=== PATIENT | male | born 1970 | race African-American/Black ===

== ENCOUNTER 2017-05-04 23:45 | Emergency (ER) | payer OTHER ==
[~2017-05-04] VITALS: Ht 182.9 cm; Wt 68.0 kg
--- NOTE | ~2017-05-04 | EKG ---
[address] [place] [address] ELECTROCARDIOGRAM REPORT Name: JUDI PICKETT Room #: DEP Loc#: [id number] Admission: 05/04/17 Attend Phys: Discharge: 05/05/17 Date of : 70 Report #: [id number] THIS REPORT FOR: //name// [facility] ED Test Date: 2017-05-05 Test Time: 00:22:09 Pat Name: JUDI PICKETT Department: Room: Gender: Business Systems Technician: JOANN : 1970 Requested By: Harrison Delatorre Order Number: [id number] MD: Michele Astorga Measurements Intervals [place] Rate: 69 P: 17 NE: 162 QRS: 58 QRSD: 89 T: 56 QT: 369 QTc: 396 Interpretive Statements Sinus rhythm Early repolarization Compared to ECG 01/02/2015 18:27:09 No significant change was found Electronically Signed On 05-05-2017 8:02:38 LODGE SALES ASSOCIATE by Michele Astorga [email or web address] <ELECTRONICALLY SIGNED> By: Michele Astorga MD, [facility] 05/05/17 0802 0022 0022 Michele Astorga MD, FACC /EPI
[~2017-05-04 23:45] MED LIST: KEFLEX500 MG PO; METFORMIN HCL500 MG PO; NAPROSYN500 MG PO; NOHOMEMEDICATIONS; NORCO 5-325 TA1 EACH PO
[2017-05-05 00:29] LABS: BASOPHILS 1.3 % (0.0-2.0); EOSINOPHILS 3.1 % (0.0-3.0); HEMATOCRIT 38.2 % (42.0-52.0); HEMOGLOBIN 12.5 gm/dL (14.0-18.0); LYMPHOCYTES 44.1 % (24.0-44.0); MCH 28.1 pg (26.0-34.0); MCHC 32.8 g/dL (28.0-37.0); MCV 85.7 fL (80.0-100.0); PLATELET COUNT 267 thou/uL (150-400); POLYS 42.5 % (36.0-66.0); RBC 4.46 mil/uL (4.50-6.00); RDW 13.4 % (10.5-14.5)
[2017-05-05 00:36] LABS: ANION GAP 6 mmol/L (7-16); BUN 16 mg/dL (7-18); CHLORIDE 107 mmol/L (98-107); CO2 28 mmol/L (21-32); CREATININE 1.1 mg/dL (0.7-1.3); GLUCOSE 146 mg/dL (74-106); POTASSIUM 4.2 mmol/L (3.5-5.1); SODIUM 141 mmol/L (136-145)
[2017-05-05 00:45] LABS: TROPONIN-I < 0.04 ng/mL (<0.06)
[2017-05-05] MEDS ORDERED: METFORMIN HCL500 MG PO (02:03)
== END 2017-05-05 02:35 | disposition home or self-care (01) ==
LOC: ER 23:45
PROVIDERS: Emergency Medicine
DX: E11.9 Type 2 diabetes mellitus without complications (principal); R51 Headache

== ENCOUNTER 2018-04-25 09:45 | Emergency (ER) | payer OTHER ==
[~2018-04-25] VITALS: Ht 182.9 cm; Wt 68.0 kg
[2018-04-25 10:05] LABS: ABSOLUTE NEUTROPHILS 3.3 thou/uL (1.4-8.2); BASOPHILS 1.4 % (0.0-2.0); EOSINOPHILS 2.9 % (0.0-3.0); HEMATOCRIT 41.5 % (42.0-52.0); HEMOGLOBIN 13.7 gm/dL (14.0-18.0); LYMPHOCYTES 28.5 % (24.0-44.0); MCH 28.4 pg (26.0-34.0); MCHC 33.1 g/dL (28.0-37.0); MCV 85.8 fL (80.0-100.0); MONOCYTES 9.1 % (1.0-8.0); PLATELET COUNT 290 thou/uL (150-400); POLYS 58.1 % (36.0-66.0); RBC 4.83 mil/uL (4.50-6.00); WBC 5.6 thou/uL (4.0-11.0)
[2018-04-25 10:16] LABS: ANION GAP 10 mmol/L (7-16); BUN 16 mg/dL (7-18); CALCIUM 9.6 mg/dL (8.5-10.1); CHLORIDE 103 mmol/L (98-107); CO2 28 mmol/L (21-32); GLUCOSE 177 mg/dL (74-106); POTASSIUM 3.9 mmol/L (3.5-5.1); SODIUM 141 mmol/L (136-145)
[2018-04-25 10:25] LABS: TROPONIN-I <0.06 ng/mL (<0.06)
[2018-04-25 12:14] VITALS: BP 93/59
--- NOTE | 2018-04-25 12:52 | EKG ---
[place] [address] [facility] [place] [address] ELECTROCARDIOGRAM REPORT Name: JUDI PICKETT Room #: DEP Loc#: [id number] ������������������ Admission: 04/25/18 ������������������ Attend Phys: Discharge: 04/25/18 ������������������ Date of : 70 Report #: [id number] ����������������������������������������������������������������� [id number] THIS REPORT FOR: //name// [facility] ED Test Date: 2018-04-25 Test Time: 09:54:02 Pat Name: JUDI PICKETT Department: Room: Gender: M Deployment Specialist: HAOBoaz : 1970 Requested By: Harrison Delatorre Order Number: [id number] MD: Anam Hernández Measurements Intervals [place] Rate: 59 P: 32 [place]: 149 QRS: 50 QRSD: 81 T: 42 QT: 376 QTc: 373 Interpretive Statements Sinus rhythm Left ventricular hypertrophy Nonspecific ST/T wave changes Compared to ECG 05/05/2017 00:22:09 Early repolarization no longer present Electronically Signed On 04-25-2018 12:52:06 SENIOR CONTROLS TECHNICIAN by Anam Hernández [email or web address] ��������������������������������������������� <ELECTRONICALLY SIGNED> ���������������������������������������� By: Anam Hernández MD ��������������������������������������������� 04/25/18 1252 0954 3 Anam Hernández MD /FELIX
== END 2018-04-25 12:48 | disposition home or self-care (01) ==
LOC: ER 09:45
PROVIDERS: Emergency Medicine
DX: R00.2 Palpitations (principal); E11.9 Type 2 diabetes mellitus without complications

== ENCOUNTER 2019-04-23 02:00 | Emergency (ER) | payer OTHER ==
[~2019-04-23] VITALS: Ht 177.8 cm; Wt 59.0 kg
[2019-04-23 02:55] LABS: HEMATOCRIT 41.3 % (42.0-52.0); HEMOGLOBIN 13.1 gm/dL (14.0-18.0); MCH 27.4 pg (26.0-34.0); MCHC 31.7 g/dL (28.0-37.0); MCV 86.5 fL (80.0-100.0); PLATELET COUNT 312 thou/uL (150-400); RBC 4.77 mil/uL (4.50-6.00); RDW 13.5 % (10.5-14.5); WBC 5.6 thou/uL (4.0-11.0)
[2019-04-23 02:57] LABS: ANION GAP 8 mmol/L (7-16); BUN 13 mg/dL (7-18); CALCIUM 9.1 mg/dL (8.5-10.1); CHLORIDE 100 mmol/L (98-107); CO2 28 mmol/L (21-32); CREATININE 0.9 mg/dL (0.7-1.3); GLUCOSE 197 mg/dL (74-106); POTASSIUM 4.3 mmol/L (3.5-5.1); SODIUM 136 mmol/L (136-145)
[2019-04-23 03:06] LABS: TROPONIN-I <0.06 ng/mL (<0.06)
[2019-04-23 03:25] LABS: ABSOLUTE NEUTROPHILS 2.2 thou/uL (1.4-8.2); ATYPICAL LYMPHS 1 %; LARGE PLATELETS OCCASIONAL
[2019-04-23] MEDS ORDERED: GLUCOPHAGE500 MG PO (05:13)
[2019-04-23 05:17] VITALS: BP 98/62
--- NOTE | 2019-04-23 08:54 | EKG ---
[facility] [place] [address] ELECTROCARDIOGRAM REPORT Name: JUDI PICKETT Room #: DEP [facility]#: [id number] Admission: 04/23/19 Attend Phys: Discharge: 04/23/19 Date of : 70 Report #: [id number] THIS REPORT FOR: cc: [facility] - Clinic physician unknown [facility] - Clinic physician unknown Deandre Gary MD ~ THIS REPORT FOR: //name// [facility] ED Test Date: 2019-04-23 Test Time: 02:10:02 Pat Name: JUDI PICKETT Department: Room: Gender: Pathology Collector: [facility] : 1970 Requested By: Marcela Morgan Order Number: [id number] MD: Deandre Gary Measurements Intervals [place] Rate: 60 P: 23 MS: 145 QRS: 54 QRSD: 84 T: 57 QT: 371 QTc: 371 Interpretive Statements Sinus rhythm Compared to ECG 04/25/2018 09:54:02 Electronically Signed On 04-23-2019 8:53:28 MACHINE WIPER by Deandre Gary [email or web address] <ELECTRONICALLY SIGNED> By: Deandre Gary MD 04/23/19 0853 9 9 Deandre Gary MD /FELIX
== END 2019-04-23 05:18 | disposition home or self-care (01) ==
LOC: ER 02:00
PROVIDERS: Emergency Medicine
DX: R07.9 Chest pain, unspecified (principal); E11.9 Type 2 diabetes mellitus without complications; M54.9 Dorsalgia, unspecified; G89.29 Other chronic pain; F41.9 Anxiety disorder, unspecified

== ENCOUNTER 2020-02-28 10:25 | Emergency (ER) | payer OTHER ==
[~2020-02-28] VITALS: Ht 177.8 cm; Wt 63.5 kg
[~2020-02-28 10:25] MED LIST changes: +GLUCOPHAGE500 MG PO
[2020-02-28 11:30] VITALS: BP 120/77
[2020-02-28] MEDS ORDERED: MOBIC7.5 MG PO (11:40)
[2020-02-28] MEDS ORDERED: AMOXICILLIN500 M1 PO (11:40)
== END 2020-02-28 12:10 | disposition home or self-care (01) ==
LOC: ER 10:25
DX: K04.7 Periapical abscess without sinus (principal); E11.9 Type 2 diabetes mellitus without complications; G89.29 Other chronic pain

== ENCOUNTER 2020-05-16 21:15 | Emergency (ER) | payer OTHER ==
[~2020-05-16] VITALS: Ht 172.7 cm; Wt 63.5 kg
[~2020-05-16 21:15] MED LIST changes: +AMOXICILLIN500 M1 PO; +MOBIC7.5 MG PO
[2020-05-16] MEDS ORDERED: NORCO 10-325 T1 EACH PO (22:30)
[2020-05-16 22:37] VITALS: BP 130/68
== END 2020-05-16 22:43 | disposition still patient (30) ==
LOC: ER 21:15
DX: S20.212A Contusion of left front wall of thorax, initial encounter (principal); E11.9 Type 2 diabetes mellitus without complications; Z79.899 Other long term (current) drug therapy; Y04.2XXA Assault by strike against or bumped into by another person, initial encounter; Y93.89 Activity, other specified; Y92.89 Other specified places as the place of occurrence of the external cause; Y99.8 Other external cause status

== ENCOUNTER 2020-10-11 01:23 | Emergency (ER) | payer OTHER ==
[~2020-10-11] VITALS: Ht 182.9 cm; Wt 77.1 kg
[~2020-10-11 01:23] MED LIST changes: +NORCO 10-325 T1 EACH PO
[2020-10-11] MEDS ORDERED: METFORMIN HCL500 MG PO (07:01)
[2020-10-11] MEDS ORDERED: BUTALB-APAP-CA1 EACH PO (07:01)
[2020-10-11 07:05] VITALS: BP 120/74
== END 2020-10-11 07:05 | disposition home or self-care (01) ==
LOC: ER 01:23
DX: R51.9 Headache, unspecified (principal); E11.9 Type 2 diabetes mellitus without complications; F41.9 Anxiety disorder, unspecified; Z79.891 Long term (current) use of opiate analgesic; Z79.84 Long term (current) use of oral hypoglycemic drugs